=== PATIENT | male | born 1990 | race African-American/Black ===

== ENCOUNTER 2025-03-09 16:54 | Emergency (ER) | payer SELFPAY ==
[2025-03-09] MEDS: predniSONE 20 MG Tab PO STA (18:00)
[2025-03-09] MEDS: Clindamycin HCl 150 MG Cap PO STA (18:00)
[2025-03-09] MEDS: Famotidine 20 MG Tab PO STA (18:00)
[2025-03-09] MEDS: diphenhydrAMINE 50 MG Cap PO ONE (18:05)
== END 2025-03-09 18:55 | disposition home or self-care (01) ==
LOC: MW.ED 16:54
DX: M79.89 Other specified soft tissue disorders (principal); T38.3X5A Adverse effect of insulin and oral hypoglycemic [antidiabetic] drugs, initial encounter; F17.210 Nicotine dependence, cigarettes, uncomplicated; Z75.3 Unavailability and inaccessibility of health-care facilities; Z79.899 Other long term (current) drug therapy
CPT/HCPCS: 99283; A9270